=== PATIENT | female | born 1970 | race Caucasian/White ===

== ENCOUNTER 2018-04-04 03:21 | Inpatient (IN) ==
[2018-04-04] MEDS ORDERED: LORazepam 0.5 MG Tablet PO ONE (04:10)
[2018-04-04 04:32] LABS: Baso # (Auto) 0.1 th/mm3 (0.0-0.2); Baso % (Auto) 0.7 % (0.0-2.0); Eos # (Auto) 0.2 th/mm3 (0.0-0.4); Eos % (Auto) 2.1 % (0.0-4.0); Hematocrit 38.4 % (35.0-46.0); Hemoglobin 13.4 gm/dL (11.6-15.3); Lymph # (Auto) 2.8 th/mm3 (1.0-4.8); Lymph % (Auto) 37.2 % (9.0-44.0); Mean Corpuscular HGB Conc 34.8 % (32.0-36.0); Mean Corpuscular Hemoglobin 34.5 pg (27.0-34.0); Mean Corpuscular Volume 99.1 fL (80.0-100.0); Mean Platelet Volume 5.8 fL (7.0-11.0); Mono # (Auto) 0.5 th/mm3 (0.0-0.9); Mono % (Auto) 6.2 % (0.0-8.0); Neut % (Auto) 53.8 % (16.0-70.0); Platelet Count 220 th/mm3 (150-450); Red Blood Count 3.88 mil/mm3 (4.00-5.30); Red Cell Distribution Width 16.8 % (11.6-17.2); White Blood Count 7.5 th/mm3 (4.0-11.0)
--- NOTE | 2018-04-04 04:42 | ED ---
HPI General Chief Complaint: Psychiatric Symptoms Stated Complaint: Psych eval, [facility] Time Seen by Provider: 04/04/18 04:09 Source: patient and police Mode of arrival: other (police) Limitations: no limitations History of Present Illness HPI Narrative: Patient presents to our facility under a Phillips act by the police department. Patient became angry and aggressive with the officer while her significant other was being arrested. Patient tried to jump out in front of the police car and states that she wanted to . Upon arrival patient has no complaints of feeling depressed anxious or wanting to kill herself. MD complaint: Reports suicidal ideation Duration: resolved prior to arrival History of same: No Relieving factors: none Exacerbating factors: none Context: Reports recent alcohol abuse and not taking psychiatric medications ( for 1 year); Denies recent drug abuse Associated psychiatric symptoms: Denies depression, suicidal ideation and homicidal ideation Associated symptoms: Reports denies other symptoms Treatments prior to arrival: Reports placed on mental health hold (phillips act) Related Data Home Medications Medication Instructions Recorded Confirmed No Known Home Medications 04/04/18 04/04/18 Allergies Allergy/AdvReac Type Severity Reaction Status Date / Time No Known Allergies Allergy Verified 04/04/18 04:09 Review of Systems ROS: all other systems reviewed are negative [facility] Medical History Medical History Anxiety (Acute) Bipolar disorder (Acute) Surgical history unknown (Acute) Social History Social History Substance History: Active Abuse Second Hand Smoke Exposure: No Smoking Status: Current every day smoker Tobacco Type: Cigarettes How Often Do You Have a Drink Containing Alcohol: 4 or more times a week Recent Travel in [facility] within the Last 8 Weeks: No Recent Out of Country Travel within the Last 8 Weeks: No Substance Abuse Detail Alcohol: Substance Use Status: Active Route Used Substance Abuse: By Mouth Reason for Use: Calm Down Immunization History Tetanus Immunization: >5 Years Exam [facility] Head: normocephalic and atraumatic Nose: no nasal discharge and no epistaxis Mouth: moist mucous membranes Eyes Sclera: normal sclerae Pupils: PERRL Neck Neck: trachea midline and no JVD Resp Effort & Inspection: no use of accessory muscles Auscultation: clear to auscultation bilaterally Cardio Rate: regular rate Rhythm: regular rhythm Heart Sounds: no murmurs GI Inspection: non-distended Palpation: soft, no hepatosplenomegaly and nontender Skin General: dry skin (warm) Neuro General: alert and awake Cranial Nerves: other Speech: speech normal Motor: no movement abnormalities noted Extrem General: normal to inspection, no clubbing, no cyanosis and no edema Psych Mood: congruent mood Affect: normal affect Judgment: judgment good Course Initial Documented Vital Signs Temperature 98.1 F 04/04/18 03:55 Pulse Rate 87 04/04/18 03:55 Respiratory Rate 18 04/04/18 03:55 Blood Pressure 140/92 H 04/04/18 03:55 Pulse Oximetry 99 04/04/18 03:55 Last Documented Vital Signs Temperature 98.1 F 04/04/18 03:55 Pulse Rate 87 04/04/18 03:55 Respiratory Rate 18 04/04/18 03:55 Blood Pressure 140/92 H 04/04/18 03:55 Pulse Oximetry 99 04/04/18 03:55 Medical Decision Making MDM Narrative Medical decision making narrative: Patient presents to our facility under a Phillips act by the police department. Patient became angry and aggressive with the officer while her significant other was being arrested. Patient tried to jump out in front of the police car and states that she wanted to . Upon arrival patient has no complaints of feeling depressed anxious or wanting to kill herself. Patient has no complaints upon arrival other than being anxious Patient received basic lab work along with urine drug screen Will receive dose of Ativan because patient is anxious along with nicotine patch Lab work is unremarkable except for patient has an blood alcohol level of 230 Patient is medically cleared at 0530 Patient await psychiatric evaluation in the morning Medical Screen Exam Complete: Yes Emergency Medical Condition: Yes Lab Data Result diagrams: 04/04/18 04:15 04/04/18 04:15 Lab Results 04/04/18 04/04/18 04/04/18 Range/Units 04:15 04:15 04:15 WBC 7.5 (4.0-11.0) th/mm3 RBC 3.88 L (4.00-5.30) mil/mm3 Hgb 13.4 (11.6-15.3) gm/dL Hct 38.4 (35.0-46.0) % MCV 99.1 (80.0-100.0) fL MCH 34.5 H (27.0-34.0) pg MCHC 34.8 (32.0-36.0) % RDW 16.8 (11.6-17.2) % Plt Count 220 (150-450) th/mm3 MPV 5.8 L (7.0-11.0) fL Neut % (Auto) 53.8 (16.0-70.0) % Lymph % (Auto) 37.2 (9.0-44.0) % [place] % (Auto) 6.2 (0.0-8.0) % Eos % (Auto) 2.1 (0.0-4.0) % Baso % (Auto) 0.7 (0.0-2.0) % Neut # (Auto) 4.0 (1.8-7.7) th/mm3 Lymph # (Auto) 2.8 (1.0-4.8) th/mm3 [place] # (Auto) 0.5 (0.0-0.9) th/mm3 Eos # (Auto) 0.2 (0.0-0.4) th/mm3 Baso # (Auto) 0.1 (0.0-0.2) th/mm3 WBC Differential . Differential Comment Auto diff final Sodium 142 (136-145) meq/L Potassium 3.8 (3.5-5.1) meq/L Chloride 106 (98-107) meq/L Carbon Dioxide 29.3 (21.0-32.0) meq/L Anion Gap 7 (5-15) meq/L BUN 5 L (7-18) mg/dL Creatinine 0.83 (0.50-1.00) mg/dL Estimated GFR 74 L (>89) mL/min Random Glucose 103 (74-106) mg/dL Calcium 8.2 L (8.5-10.1) mg/dL Magnesium 2.7 H (1.5-2.5) mg/dL Total Bilirubin 0.3 (0.2-1.0) mg/dL AST 90 H (15-37) U/L ALT 49 (10-53) U/L Alkaline Phosphatase 201 H (45-117) U/L Total Protein 7.4 (6.4-8.2) g/dL Albumin 3.5 (3.4-5.0) g/dL TSH 2.480 (0.358-3.740) uIU/mL Salicylates 4.4 (2.8-20.0) mg/dL Urine Opiates Screen (Neg) Acetaminophen Less than 2.0 L (10.0-30.0) mcg/mL Ur Barbiturates Screen (Neg) Ur Amphetamines Screen (Neg) U Benzodiazepines Scrn (Neg) Urine Cocaine Screen (Neg) U Cannabinoids Screen (Neg) Serum Alcohol 233 H (0-5) mg/dL 04/04/18 Range/Units 04:20 WBC (4.0-11.0) th/mm3 RBC (4.00-5.30) mil/mm3 Hgb (11.6-15.3) gm/dL Hct (35.0-46.0) % MCV (80.0-100.0) fL MCH (27.0-34.0) pg MCHC (32.0-36.0) % RDW (11.6-17.2) % Plt Count (150-450) th/mm3 MPV (7.0-11.0) fL Neut % (Auto) (16.0-70.0) % Lymph % (Auto) (9.0-44.0) % [place] % (Auto) (0.0-8.0) % Eos % (Auto) (0.0-4.0) % Baso % (Auto) (0.0-2.0) % Neut # (Auto) (1.8-7.7) th/mm3 Lymph # (Auto) (1.0-4.8) th/mm3 [place] # (Auto) (0.0-0.9) th/mm3 Eos # (Auto) (0.0-0.4) th/mm3 Baso # (Auto) (0.0-0.2) th/mm3 WBC Differential Differential Comment Sodium (136-145) meq/L Potassium (3.5-5.1) meq/L Chloride (98-107) meq/L Carbon Dioxide (21.0-32.0) meq/L Anion Gap (5-15) meq/L BUN (7-18) mg/dL Creatinine (0.50-1.00) mg/dL Estimated GFR (>89) mL/min Random Glucose (74-106) mg/dL Calcium (8.5-10.1) mg/dL Magnesium (1.5-2.5) mg/dL Total Bilirubin (0.2-1.0) mg/dL AST (15-37) U/L ALT (10-53) U/L Alkaline Phosphatase (45-117) U/L Total Protein (6.4-8.2) g/dL Albumin (3.4-5.0) g/dL TSH (0.358-3.740) uIU/mL Salicylates (2.8-20.0) mg/dL Urine Opiates Screen Neg (Neg) Acetaminophen (10.0-30.0) mcg/mL Ur Barbiturates Screen Neg (Neg) Ur Amphetamines Screen Neg (Neg) U Benzodiazepines Scrn Neg (Neg) Urine Cocaine Screen Neg (Neg) U Cannabinoids Screen Neg (Neg) Serum Alcohol (0-5) mg/dL Discharge Plan Discharge Disposition Patient Disposition: Sign Out(ED Internal Use Only) Discharge Condition Condition: Stable Discharge Details Diagnosis: Suicidal ideation, Alcohol intoxication Physicians Team ED Provider: Bib Diaz ED Midlevel Provider: Jenny Schulz Primary Care Provider: UNKNOWN, Rxs /Orders / Referrals /Forms Prescriptions: No Action No Known Home Medications RF: 0 Status ED Status: With Doctor
[2018-04-04 04:47] LABS: Alanine Aminotransferase 49 U/L (10-53); Albumin 3.5 g/dL (3.4-5.0); Anion Gap 7 meq/L (5-15); Aspartate Aminotransferase 90 U/L (15-37); Calcium 8.2 mg/dL (8.5-10.1); Carbon Dioxide 29.3 meq/L (21.0-32.0); Chloride 106 meq/L (98-107); Glomerular Filtration Rate 74 mL/min (>89); Glucose,Random 103 mg/dL (74-106); Magnesium 2.7 mg/dL (1.5-2.5); Potassium 3.8 meq/L (3.5-5.1); Sodium 142 meq/L (136-145)
[2018-04-04 04:48] LABS: Amphetamine Screen,Urine Neg (Neg); Barbiturate Screen,Urine Neg (Neg); Cannabinoid Screen,Urine Neg (Neg); Cocaine Screen,Urine Neg (Neg)
[2018-04-04 04:55] LABS: Alkaline Phosphatase 201 U/L (45-117); Blood Urea Nitrogen 5 mg/dL (7-18); Total Protein 7.4 g/dL (6.4-8.2)
[2018-04-04 05:03] LABS: Opiate Screen,Urine Neg (Neg)
[2018-04-04 05:03] LABS: Alcohol 233 mg/dL (0-5)
[2018-04-04] MEDS ORDERED: Aluminum/Magnesium/Simethacone Susp 30 ML UDC PO PRN (12:36)
[2018-04-04] MEDS ORDERED: Bisacodyl 10 MG Supp RECTAL PRN (12:36)
[2018-04-04] MEDS ORDERED: Haloperidol Inj 5 MG/ML Ampul IV.PUSH PRN (12:41)
[2018-04-04] MEDS: Sertraline 50 MG Tablet PO SCH (12:58)
[2018-04-04] MEDS: LORazepam 1 MG Tablet PO PRN ×3 (13:25→21:47)
[2018-04-04] MEDS: Ibuprofen 600 MG Tablet PO PRN (14:32)
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
[2018-04-04] MEDS: traZODone 50 MG Tablet PO PRN (21:18)
[2018-04-05] MEDS: Sertraline 50 MG Tablet PO SCH (09:17)
[2018-04-05] MEDS: Multivitamin/Minerals Therapeutic Tablet PO SCH (09:17)
[2018-04-05] MEDS: Folic Acid 1 MG Tablet PO SCH (09:17)
[2018-04-05] MEDS: LORazepam 1 MG Tablet PO PRN (09:29)
[2018-04-05 10:32] LABS: Calcium 8.5 mg/dL (8.5-10.1); Carbon Dioxide 28.6 meq/L (21.0-32.0); Potassium 3.8 meq/L (3.5-5.1)
[2018-04-05 10:35] LABS: Chol/HDL Ratio 3.08 Ratio; HDL Cholesterol 67.4 mg/dL (40.0-60.0)
--- NOTE | 2018-04-05 14:11 | P.PNPSY ---
Subjective Chief Complaint: Worsening depression with suicidal ideations Remarks: Patient seen for follow-up, chart reviewed, patient discussed with nursing staff ; we reviewed the patient's mood, thoughts, and behaviors from overnight and this morning. Nursing reports the patient has been calm and cooperative with care and was described as pleasant on approach. Patient was seen at bedside this morning after breakfast and she reports feeling safe on the unit and was appreciative with her care. She reports good tolerability of the start of her medication that she slept well overnight. She expressed motivation for her recovery and talking with unit social media intern about assistance with nursing home. Review of Systems All other systems reviewed negative except as stated in HPI Mental Status Examination Appearance: Disheveled Consciousness: Alert Orientation: x4 Motor Activity: Normal gait Speech: Unremarkable Language: Adequate Fund of Knowledge: Adequate Attention and Concentration: Adequate Memory: Unremarkable Mood: Sad, Anxious Affect: Appropriate Thought Process & Associations: Intact Thought Content: Appropriate Hallucination Type: None Delusion Type: None Suicidal Ideation: No (Currently passive in patient contract for safety in the hospital) Suicidal Plan: No Suicidal Intention: No Homicidal Ideation: No Homicidal Plan: No Homicidal Intention: No Insight: Fair Judgment: Impulsive Assessment and Plan - Assessment (1) Major depressive disorder, recurrent, moderate Code(s): F33.1 - Major depressive disorder, recurrent, moderate Status: Acute (2) Posttraumatic stress disorder Code(s): F43.10 - Post-traumatic stress disorder, unspecified Status: Chronic (3) Alcohol dependence Code(s): F10.20 - Alcohol dependence, uncomplicated Status: Chronic - Plan Plan: 04/04/2018 Initial treatment plan: 1. Continue with admission to inpatient psychiatry at [facility]; voluntary /competent legal status. 2. Routine unit precautions. 3. Comfort medications ordered for as needed treatment of constipation, heartburn, diarrhea, and mild pain. 4. Hydroxyzine 50mg po q6H prn anxiety/insomnia. 5. Start alcohol withdrawal protocol with Ativan 1-2 mg every 4 hours as needed based on Macho protocol. 6. Start Zoloft 50 mg every day for treatment of depression and PTSD. 7. Start trazodone 100 mg at bedtime as needed for sleep. 8. Patient will participate in the unit programming to include group therapies , milieu therapy and recreational therapies. 9. Estimated LOS: 5 days 04/05/2018: Fair response to initial treatment, the patient's suicidal ideations have lessened in intensity and she is feeling hopeful for her future. Continue inpatient stabilization and treatment as described above. Discharge planning: Patient work with unit social media intern on finding nursing home and substance use treatment. Justification for Continued Inpatient Stay: Patient remains an elevated risk for self-harm and will require further inpatient stabilization and preparation of a safe discharge plan. Moving patient to a less restrictive environment at this time may result in decompensation.
[2018-04-05] MEDS: Ibuprofen 600 MG Tablet PO PRN (14:25)
[2018-04-05 16:38] LABS: Hemoglobin A1c 5.4 % (4.3-6.0)
[2018-04-05] MEDS: traZODone 50 MG Tablet PO PRN (21:36)
[2018-04-06] MEDS: Multivitamin/Minerals Therapeutic Tablet PO SCH (08:21)
[2018-04-06] MEDS: Folic Acid 1 MG Tablet PO SCH (08:21)
[2018-04-06] MEDS: Sertraline 50 MG Tablet PO SCH (08:21)
--- NOTE | 2018-04-06 10:15 | P.PNPSY ---
Subjective Chief Complaint: Worsening depression with suicidal ideations Remarks: Patient seen for follow-up, chart reviewed, patient discussed with nursing staff ; we reviewed the patient's mood, thoughts, and behaviors from overnight and this morning. Nurse reports the patient has remained calm and cooperative with care but mostly isolative to her room. She slept approximately 8 hours overnight. The patient was seen at bedside after breakfast where she was lying awake. She reports satisfaction with current treatment and reports feeling that her mood is improved and she is more hopeful about her recovery. She denies any withdrawal symptoms from alcohol today. She denies any active suicidal ideations. Review of Systems All other systems reviewed negative except as stated in HPI Mental Status Examination Appearance: Disheveled Consciousness: Alert Orientation: x4 Motor Activity: Normal gait Speech: Unremarkable Language: Adequate Fund of Knowledge: Adequate Attention and Concentration: Adequate Memory: Unremarkable Mood: Sad, Anxious Affect: Appropriate Thought Process & Associations: Intact Thought Content: Appropriate Hallucination Type: None Delusion Type: None Suicidal Ideation: No (Currently passive in patient contract for safety in the hospital) Suicidal Plan: No Suicidal Intention: No Homicidal Ideation: No Homicidal Plan: No Homicidal Intention: No Insight: Fair Judgment: Impulsive Assessment and Plan - Assessment (1) Major depressive disorder, recurrent, moderate Code(s): F33.1 - Major depressive disorder, recurrent, moderate Status: Acute (2) Posttraumatic stress disorder Code(s): F43.10 - Post-traumatic stress disorder, unspecified Status: Chronic (3) Alcohol dependence Code(s): F10.20 - Alcohol dependence, uncomplicated Status: Chronic - Plan Plan: 04/04/2018 Initial treatment plan: 1. Continue with admission to inpatient psychiatry at [facility]; voluntary /competent legal status. 2. Routine unit precautions. 3. Comfort medications ordered for as needed treatment of constipation, heartburn, diarrhea, and mild pain. 4. Hydroxyzine 50mg po q6H prn anxiety/insomnia. 5. Start alcohol withdrawal protocol with Ativan 1-2 mg every 4 hours as needed based on Macho protocol. 6. Start Zoloft 50 mg every day for treatment of depression and PTSD. 7. Start trazodone 100 mg at bedtime as needed for sleep. 8. Patient will participate in the unit programming to include group therapies , milieu therapy and recreational therapies. 9. Estimated LOS: 5 days 04/05/2018: Fair response to initial treatment, the patient's suicidal ideations have lessened in intensity and she is feeling hopeful for her future. Continue inpatient stabilization and treatment as described above. Discharge planning: Patient work with unit transition social worker on finding skilled nursing and substance use treatment. 04/06/2018: Good response to treatment, the patient's suicidal ideations have resolved and she has tolerated the start of antidepressant treatment. She remains high risk for suicide based on severe psychosocial stressors and recent SI therefore continued inpatient stabilization and treatment is warranted. Discharge planning: Patient work with unit transition social worker on finding skilled nursing and substance use treatment. Justification for Continued Inpatient Stay: Patient remains an elevated risk for self-harm and will require further inpatient stabilization and preparation of a safe discharge plan. Moving patient to a less restrictive environment at this time may result in decompensation.
[2018-04-06] MEDS: Ibuprofen 600 MG Tablet PO PRN (16:05)
[2018-04-06] MEDS: traZODone 50 MG Tablet PO PRN (20:36)
[2018-04-07] MEDS: Sertraline 50 MG Tablet PO SCH (08:26)
[2018-04-07] MEDS: Multivitamin/Minerals Therapeutic Tablet PO SCH (08:26)
[2018-04-07] MEDS: Folic Acid 1 MG Tablet PO SCH (08:27)
--- NOTE | 2018-04-07 10:19 | P.PNPSY ---
Subjective Chief Complaint: Worsening depression with suicidal ideations Remarks: Patient seen for follow-up, chart reviewed, patient discussed with nursing staff ; we reviewed the patient's mood, thoughts, and behaviors from overnight and this morning. Nurse reports the patient continues to interact appropriately with staff and patients and is denying active suicidal ideations. She is calm and cooperative with care. The patient was seen at bedside after breakfast when she was asleep but awakened easily by name. She reports sleep has been very restless and we discussed changes to her sleep aid and she agreed to an increase. She rates her depression as 7 out of 10 and anxiety as 7 out of 10 but both are improvements according to her report. Patient expressed satisfaction with current treatment plan. Mental Status Examination Appearance: Disheveled Consciousness: Alert Orientation: x4 Motor Activity: Normal gait Speech: Unremarkable Language: Adequate Fund of Knowledge: Adequate Attention and Concentration: Adequate Memory: Unremarkable Mood: Sad, Anxious Affect: Appropriate Thought Process & Associations: Intact Thought Content: Appropriate Hallucination Type: None Delusion Type: None Suicidal Ideation: No (Currently passive in patient contract for safety in the hospital) Suicidal Plan: No Suicidal Intention: No Homicidal Ideation: No Homicidal Plan: No Homicidal Intention: No Insight: Fair Judgment: Impulsive Assessment and Plan - Assessment (1) Major depressive disorder, recurrent, moderate Code(s): F33.1 - Major depressive disorder, recurrent, moderate Status: Acute (2) Posttraumatic stress disorder Code(s): F43.10 - Post-traumatic stress disorder, unspecified Status: Chronic (3) Alcohol dependence Code(s): F10.20 - Alcohol dependence, uncomplicated Status: Chronic - Plan Plan: 04/04/2018 Initial treatment plan: 1. Continue with admission to inpatient psychiatry at [facility]; voluntary /competent legal status. 2. Routine unit precautions. 3. Comfort medications ordered for as needed treatment of constipation, heartburn, diarrhea, and mild pain. 4. Hydroxyzine 50mg po q6H prn anxiety/insomnia. 5. Start alcohol withdrawal protocol with Ativan 1-2 mg every 4 hours as needed based on Macho protocol. 6. Start Zoloft 50 mg every day for treatment of depression and PTSD. 7. Start trazodone 100 mg at bedtime as needed for sleep. 8. Patient will participate in the unit programming to include group therapies , milieu therapy and recreational therapies. 9. Estimated LOS: 5 days 04/05/2018: Fair response to initial treatment, the patient's suicidal ideations have lessened in intensity and she is feeling hopeful for her future. Continue inpatient stabilization and treatment as described above. Discharge planning: Patient work with unit social welfare clerk on finding alf and substance use treatment. 04/06/2018: Good response to treatment, the patient's suicidal ideations have resolved and she has tolerated the start of antidepressant treatment. She remains high risk for suicide based on severe psychosocial stressors and recent SI therefore continued inpatient stabilization and treatment is warranted. Discharge planning: Patient work with unit social welfare clerk on finding alf and substance use treatment. 04/07/2018: Continued good response to treatment, suicidal ideations have resolved and depression and anxiety symptoms are improving. The patient will require additional time on current medications in order to achieve a therapeutic dose and response. Continue inpatient stabilization and treatment. Continue Zoloft 50 mg/day for treatment of depression, anticipate increase tomorrow if no side effects. Increase trazodone to 150 mg at bedtime as needed for sleep. Discharge planning: Patient work with unit social welfare clerk on finding alf and substance use treatment. Justification for Continued Inpatient Stay: Patient remains an elevated risk for self-harm and will require further inpatient stabilization and preparation of a safe discharge plan. Moving patient to a less restrictive environment at this time may result in decompensation.
[2018-04-07] MEDS: Ibuprofen 600 MG Tablet PO PRN ×2 (13:02→21:21)
[2018-04-07] MEDS: traZODone 50 MG Tablet PO PRN (21:22)
[2018-04-08 05:47] VITALS: RESP 16
[2018-04-08] MEDS: Folic Acid 1 MG Tablet PO SCH (08:32)
[2018-04-08] MEDS: Multivitamin/Minerals Therapeutic Tablet PO SCH (08:32)
[2018-04-08] MEDS: Sertraline 50 MG Tablet PO SCH (08:34)
--- NOTE | 2018-04-08 15:00 | P.PNPSY ---
Subjective Chief Complaint: Worsening depression with suicidal ideations Remarks: Patient seen for follow-up, chart reviewed, patient discussed with nursing staff ; we reviewed the patient's mood, thoughts, and behaviors from overnight and this morning. Nursing reports the patient remains calm cooperative and polite with care. She is mostly isolated to her room but does come out for meals. Patient was seen at bedside today after breakfast where she was conversing appropriately with her roommate. She has no complaints today. She is tolerating her medication and agrees with plan to titrate her Zoloft dose to 100 mg/day. The patient is eagerly awaiting visits with unit administrator social welfare to discuss long-term as well as recovery options. Mental Status Examination Appearance: Disheveled Consciousness: Alert Orientation: x4 Motor Activity: Normal gait Speech: Unremarkable Language: Adequate Fund of Knowledge: Adequate Attention and Concentration: Adequate Memory: Unremarkable Mood: Sad, Anxious Affect: Appropriate Thought Process & Associations: Intact Thought Content: Appropriate Hallucination Type: None Delusion Type: None Suicidal Ideation: No (Currently passive in patient contract for safety in the hospital) Suicidal Plan: No Suicidal Intention: No Homicidal Ideation: No Homicidal Plan: No Homicidal Intention: No Insight: Fair Judgment: Impulsive Assessment and Plan - Assessment (1) Major depressive disorder, recurrent, moderate Code(s): F33.1 - Major depressive disorder, recurrent, moderate Status: Acute (2) Posttraumatic stress disorder Code(s): F43.10 - Post-traumatic stress disorder, unspecified Status: Chronic (3) Alcohol dependence Code(s): F10.20 - Alcohol dependence, uncomplicated Status: Chronic - Plan Plan: 04/04/2018 Initial treatment plan: 1. Continue with admission to inpatient psychiatry at [facility]; voluntary /competent legal status. 2. Routine unit precautions. 3. Comfort medications ordered for as needed treatment of constipation, heartburn, diarrhea, and mild pain. 4. Hydroxyzine 50mg po q6H prn anxiety/insomnia. 5. Start alcohol withdrawal protocol with Ativan 1-2 mg every 4 hours as needed based on [facility]o protocol. 6. Start Zoloft 50 mg every day for treatment of depression and PTSD. 7. Start trazodone 100 mg at bedtime as needed for sleep. 8. Patient will participate in the unit programming to include group therapies , milieu therapy and recreational therapies. 9. Estimated LOS: 5 days 04/05/2018: Fair response to initial treatment, the patient's suicidal ideations have lessened in intensity and she is feeling hopeful for her future. Continue inpatient stabilization and treatment as described above. Discharge planning: Patient work with unit administrator social welfare on finding long-term and substance use treatment. 04/06/2018: Good response to treatment, the patient's suicidal ideations have resolved and she has tolerated the start of antidepressant treatment. She remains high risk for suicide based on severe psychosocial stressors and recent SI therefore continued inpatient stabilization and treatment is warranted. Discharge planning: Patient work with unit administrator social welfare on finding long-term and substance use treatment. 04/07/2018: Continued good response to treatment, suicidal ideations have resolved and depression and anxiety symptoms are improving. The patient will require additional time on current medications in order to achieve a therapeutic dose and response. Continue inpatient stabilization and treatment. Continue Zoloft 50 mg/day for treatment of depression, anticipate increase tomorrow if no side effects. Increase trazodone to 150 mg at bedtime as needed for sleep. Discharge planning: Patient work with unit administrator social welfare on finding long-term and substance use treatment. 04/08/2018: Continued good response to treatment, suicidal ideations remain in remission depression and anxiety symptoms have improved since admission. Continue inpatient stabilization and treatment with an increase of her Zoloft 100 mg/day. Discharge planning: Patient will work with unit administrator social welfare and find long-term and substance use treatment options. Anticipate discharge tomorrow. Justification for Continued Inpatient Stay: Patient remains an elevated risk for self-harm and will require further inpatient stabilization and preparation of a safe discharge plan. Moving patient to a less restrictive environment at this time may result in decompensation.
[2018-04-08] MEDS: traZODone 50 MG Tablet PO PRN (21:18)
[2018-04-09 06:35] VITALS: BP 121/68; PULSE 71; TEMP 98.2; O2SAT 95
[2018-04-09] MEDS: Folic Acid 1 MG Tablet PO SCH (08:14)
[2018-04-09] MEDS: Multivitamin/Minerals Therapeutic Tablet PO SCH (08:15)
[2018-04-09] MEDS ORDERED: Sertraline 100 MG Tablet PO SCH (09:00)
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
== END 2018-04-09 12:30 | disposition home or self-care (01) | DRG 885 ==
LOC: NEPJ 03:21 → NEDA 12:40 → H260 14:09
PROVIDERS: ADMIT Psychiatry & Neurology Psychiatry; ATTEND Psychiatry & Neurology Psychiatry